=== PATIENT | female | born 1960 | race Caucasian/White ===

== ENCOUNTER 2017-10-09 14:21 | Day surgery (SDC) | payer OTHER ==
[2017-10-09] MEDS ORDERED: MIDAZOLAM 1 MG/ML 2 ML INJ (16:47)
[2017-10-09] MEDS ORDERED: FENTAnyl 50 MCG/ML VIAL (16:47)
[2017-10-09] MEDS ORDERED: PROPOFOL 20 ML (16:47)
[2017-10-09] MEDS ORDERED: EPHEDrine 50 MG INJ (16:56)
[2017-10-09] MEDS ORDERED: STRONG IODINE 14 ML SOLUTION TOP (16:58)
[2017-10-09] MEDS ORDERED: KETOROLAC 30 MG INJ (16:59)
[2017-10-09] MEDS ORDERED: METOCLOPRAMIDE 10 MG INJ (16:59)
[2017-10-09] MEDS ORDERED: DEXAMETHASONE 4 MG/ML 1 ML INJ (16:59)
[2017-10-09] MEDS ORDERED: ONDANSETRON 4 MG INJ (16:59)
[2017-10-09] MEDS ORDERED: LABETALOL HCL 20MG INJ IV (17:30)
[2017-10-09] MEDS ORDERED: OXYCODONE/ACETAMINOPHEN (5/325) TAB PO (17:30)
[2017-10-09] MEDS ORDERED: ACETAMINOPHEN 325 MG TAB PO (17:30)
[2017-10-09] MEDS ORDERED: EPHEDrine SULFATE 50 MG/5 ML SYG IV (17:30)
[2017-10-09] MEDS ORDERED: HYDROmorphONE 1 MG/5 ML IV SYRINGE IV ×3 (17:30)
[2017-10-09] MEDS ORDERED: ONDANSETRON 4 MG INJ IV (17:30)
[2017-10-09] MEDS ORDERED: FENTAnyl 50 MCG/ML VIAL IV ×3 (17:30)
[2017-10-09] MEDS ORDERED: DIPHENHYDRAMINE 50 MG INJ IV (17:30)
[2017-10-09] MEDS ORDERED: METOCLOPRAMIDE 10 MG INJ IV (17:30)
[2017-10-09] MEDS ORDERED: MEPERIDINE 25 MG INJ IV (17:30)
== END 2017-10-09 18:50 | disposition home or self-care (01) ==
LOC: SDS 14:21
DX: N87.1 Moderate cervical dysplasia (principal); T83.32XA Displacement of intrauterine contraceptive device, initial encounter; Y76.8 Miscellaneous obstetric and gynecological devices associated with adverse incidents, not elsewhere classified
CPT/HCPCS: 57522; 84702; 86850; 86900; 86901; 88300; 88305